=== PATIENT | male | born 1945 | race Caucasian/White ===

== ENCOUNTER 2019-02-26 08:09 | Observation (INO) | payer MEDICARE, OTHER ==
[~2019-02-26] VITALS: Ht 188 cm; Wt 125.0 kg
[2019-02-26] MEDS ORDERED: SODIUM CHLORIDE 0.9% 1,000 ML IV SCH (08:28)
[2019-02-26 08:43] VITALS: BP 120/78
[2019-02-26] MEDS ORDERED: FURO20TA3 PO (08:56)
[2019-02-26] MEDS ORDERED: SIMV40TA3 PO (08:56)
[2019-02-26] MEDS ORDERED: AMIO200T42 PO (08:56)
[2019-02-26] MEDS ORDERED: APIX5TAB PO (08:56)
[2019-02-26] MEDS ORDERED: ATEN25TA PO (08:56)
[2019-02-26] MEDS ORDERED: POTA20TA6 PO (08:56)
[2019-02-26] MEDS ORDERED: ALLO300T PO (08:56)
[2019-02-26] MEDS ORDERED: MIDAZOLAM 1 MG/ML, 2ML ONE (10:40)
[2019-02-26] MEDS ORDERED: FENTANYL PF 250 MCG/5ML ONE (10:40)
[2019-02-26] MEDS ORDERED: LIDOCAINE 1%, 20ML ONE (10:52)
[2019-02-26] MEDS ORDERED: DEXAMETHASONE 4 MG/ML, 1ML ONE (10:55)
[2019-02-26] MEDS ORDERED: SUCCINYLCHOLINE 20 MG/ML, 10ML ONE (10:55)
[2019-02-26] MEDS ORDERED: PROPOFOL 10 MG/ML, 20ML ONE (10:55)
[2019-02-26] MEDS ORDERED: ONDANSETRON 2MG/ML, 2ML ONE (10:55)
[2019-02-26] MEDS ORDERED: ACETAMINOPHEN 325 MG TABLET PO PRN ×2 (13:00→13:30)
[2019-02-26] MEDS ORDERED: APIXABAN 5 MG TABLET ONE (13:09)
[2019-02-26] MEDS ORDERED: MORPHINE SULFATE 4 MG/ML, 1ML IVPush PRN (13:30)
[2019-02-26] MEDS ORDERED: ONDANSETRON 2MG/ML, 2ML IV PRN (13:30)
[2019-02-26] MEDS ORDERED: PROMETHAZINE 25 MG/ML, 1ML IV PRN (13:30)
[2019-02-26] MEDS ORDERED: EPHEDRINE 50 MG/ML, 1ML IM PRN (13:30)
[2019-02-26] MEDS ORDERED: DIPHENHYDRAMINE 50 MG/ML, 1ML IVPush PRN (13:30)
[2019-02-26] MEDS ORDERED: DIAZEPAM 5 MG/ML, 2ML IVPush PRN (13:30)
[2019-02-26] MEDS ORDERED: PROMETHAZINE 12.5 MG SUPP PR PRN (13:30)
[2019-02-26] MEDS ORDERED: FENTANYL PF 100 MCG/2ML IV PRN (13:30)
[2019-02-26] MEDS ORDERED: EPHEDRINE 50 MG/ML, 1ML IVPush PRN (13:30)
[2019-02-26] MEDS ORDERED: MIDAZOLAM 1 MG/ML, 2ML IV PRN (13:30)
[2019-02-26] MEDS ORDERED: OXYcodone 5 MG/5 ML ORAL.SOL UDC PO PRN (13:30)
[2019-02-26] MEDS ORDERED: hydrALAzine 20 MG/ML, 1ML IV PRN (13:30)
[2019-02-26] MEDS ORDERED: ONDANSETRON ODT 8 MG PO PRN (13:30)
[2019-02-26] MEDS ORDERED: OXYcodone 5 MG/5 ML ORAL.SOL UDC ONE (13:42)
[2019-02-26] MEDS ORDERED: ACETAMINOPHEN 650 MG/20.3 ML UDC ONE (13:42)
[2019-02-26] MEDS ORDERED: FENTANYL PF 100 MCG/2ML ONE (13:42)
[2019-02-26 14:25] VITALS: BP 111/75
[2019-02-26 19:13] VITALS: BP 110/71
[2019-02-26] MEDS ORDERED: SIMVASTATIN 40 MG TABLET PO SCH (21:00)
[2019-02-26] MEDS ORDERED: APIXABAN 5 MG TABLET PO SCH (21:00)
[2019-02-26 22:00] VITALS: BP 106/69
[2019-02-26] MEDS: APIXABAN 5 MG TABLET PO SCH (22:02)
[2019-02-26] MEDS: POTASSIUM CHLORIDE 20 MEQ TAB.ER.PRT PO SCH (22:02)
[2019-02-26] MEDS: ATENOLOL 25 MG TABLET PO SCH (22:02)
[2019-02-27 03:41] VITALS: BP 114/70
[2019-02-27 07:00] VITALS: BP 105/66
[2019-02-27] MEDS ORDERED: ALLOPURINOL 300 MG TABLET PO SCH (09:00)
[2019-02-27] MEDS ORDERED: AMIODARONE 200 MG TABLET PO SCH (09:00)
[2019-02-27] MEDS ORDERED: FUROSEMIDE 20 MG TABLET PO SCH (09:00)
[2019-02-27] MEDS ORDERED: FUROSEMIDE 40 MG TABLET ONE (09:56)
[2019-02-27] MEDS: APIXABAN 5 MG TABLET PO SCH (10:13)
[2019-02-27] MEDS: POTASSIUM CHLORIDE 20 MEQ TAB.ER.PRT PO SCH (10:13)
[2019-02-27] MEDS: ATENOLOL 25 MG TABLET PO SCH (10:13)
[2019-02-27 12:10] VITALS: BP 106/68
== END 2019-02-27 14:27 | disposition home or self-care (01) ==
LOC: CACL 08:09 → ORIP 12:38 → 5SO 14:24 → DCLOUNGE 02-27 14:10
PROVIDERS: ADMIT Internal Medicine Cardiovascular Disease; ATTEND Internal Medicine Cardiovascular Disease
DX: I48.0 Paroxysmal atrial fibrillation (principal); I48.92 Unspecified atrial flutter; I10 Essential (primary) hypertension; I63.9 Cerebral infarction, unspecified; G47.30 Sleep apnea, unspecified; Z95.0 Presence of cardiac pacemaker; Z79.01 Long term (current) use of anticoagulants
CPT/HCPCS: 85347; 93306; 93613; 93656; 93657; 93662; C1730; C1732; C1759; C1766; C1893; C1894; G0378; J0330; J1100; J2250; J2405; J2704; J3010; J3490